=== PATIENT | male | born 1985 ===

== ENCOUNTER 2022-09-28 22:33 | Emergency (ER) | payer SELFPAY ==
[2022-09-28 23:22] VITALS: BP 120/83; PULSE 75; RESP 16; TEMP 97.9; BMI 31.1
== END 2022-09-29 01:00 | disposition home or self-care (01) ==
LOC: FER 22:33
DX: F10.929 Alcohol use, unspecified with intoxication, unspecified (principal)
CPT/HCPCS: 99283-25